=== PATIENT | male | born 1970 | race Caucasian/White ===

== ENCOUNTER 2021-05-20 15:32 | Emergency (ER) | payer OTHER, SELFPAY ==
[2021-05-20 15:57] VITALS: BP 145/92; PULSE 85; RESP 20; TEMP 36.3; O2SAT 99; BMI 29.5
--- NOTE | 2021-05-20 16:34 | ED_ITS ---
Documented by User: Robert Gamble DO 05/20/21 17:39 HPI - Abdominal Pain General: Chief Complaint: Abdominal Pain Stated Complaint: ABD PAINS CRAMPING N/V Time Seen by Provider: 05/20/21 16:32 History of Present Illness: 51-year-old male presents emergency room complaining of abdominal pain with diarrhea that began suddenly while at work. Patient denies any hematemesis coffee-ground emesis no dysuria urgency frequency not noticed anything that exacerbates or relieves it. Does seem somewhat better now than it was earlier. No dysuria urgency or frequency no hematuria. MD elicited complaint: abdominal pain Onset (ago): minute(s) Pain Consistency: intermittent Location: Diffuse Severity: moderate Quality: cramping Radiation: none Migration to: no migration Exacerbating factors: nothing Relieving factors: nothing Associated Symptoms: Reports bloating, change in stool character, chills, GI cramping, diarrhea, nausea and poor appetite; Denies anorexia, belching, change in bowel habits, coffee ground emesis, constipation, dyspepsia, dysuria, excessive flatus, fever(s), heartburn, hematochezia, hematuria, hematemesis, fecal incontinence, loose stools, melena, syncope and vomiting Review of Systems Const: Reports: chills; Denies: fever(s) ENMT: Denies: throat pain, ear or mastoid pain, nasal discharge or nasal congestion Card: Denies: syncope Resp: Denies: dyspnea, productive cough or non-productive cough GI: Reports: nausea, diarrhea, bloating, GI cramping and change in stool character; Denies: vomiting, hematemesis, coffee ground emesis, heartburn, constipation, belching, excessive flatus, fecal incontinence, change in bowel habits, hematochezia or melena : Denies: dysuria or hematuria Skin/Breast: Denies: rash or pruritus PFSH ED PFSH: Medical History (Updated 05/20/21 @ 18:17 by Seema Cueto MD) No significant past medical history Surgical History (Updated 05/20/21 @ 17:11 by Robert Gamble DO) No pertinent past surgical history Social History (Updated 05/20/21 @ 17:11 by Robert Gamble DO) Smoking and tobacco status: never smoked Alcohol intake: never Physical Exam Const: COMMON NORMALS: no acute distress GENERAL APPEARANCE: cooperative and comfortable ORIENTATION/CONSCIOUSNESS: Yes awake, Yes oriented to person, Yes oriented to place and Yes oriented to time HENMT: COMMON NORMALS: normocephalic and atraumatic HEAD & SCALP: normocephalic and atraumatic Neck/C-Spine: COMMON NORMALS: no JVD Resp: COMMON NORMALS: normal respiratory effort, No retractions, No use of accessory muscles and clear to auscultation bilaterally AUSCULTATION: clear to auscultation bilaterally Cardio: COMMON NORMALS: no JVD, regular rate, regular rhythm and No murmurs present (Cardio) RATE: regular rate RHYTHM: regular rhythm GI: AUSCULTATION: Yes Hypoactive bowel sounds present PALPATION: Yes Tenderness to palpation present (GI) Details: LUQ and No Guarding due to palpation present (GI) : COMMON NORMALS: Yes no CVA tenderness BLADDER/KIDNEY EXAM: Yes no CVA tenderness Back/Pelvis: COMMON NORMALS: no CVA tenderness Extremity: COMMON NORMALS: normal to inspection, capillary refill normal, no clubbing, cyanosis or edema, no calf tenderness and no pedal edema Neuro: SENSORIUM/ORIENTATION: Yes oriented to person, Yes oriented to place and Yes oriented to time Skin: COMMON NORMALS: no rashes or lesions noted GENERAL SKIN EXAM: no rashes or lesions noted Course Vital Signs: Vital signs: Vital Signs Temperature 97.4 F L 05/20/21 15:57 Pulse Rate 90 05/20/21 18:02 Respiratory Rate 20 H 05/20/21 15:57 Blood Pressure 133/92 05/20/21 18:02 Pulse Oximetry 95 05/20/21 18:02 MDM - Abdominal Pain Medical Decision Making Labs and imaging pending. Care turned over to Dr. Cueto at change of shift see his notes for final diagnosis and disposition. Lab Data : 05/20/21 16:42 05/20/21 16:42 Labs/Radiology: Radiology Impressions Abdomen/Pelvis CT 05/20/21 17:03 IMPRESSION: 1. Fluid-filled small bowel and colon is consistent with diarrhea and possible enteritis. No obstruction. COMMENTS: Consistent with the [employer]'s Incidental Findings Committee white paper ([employer] 2018): Any incidental renal lesion less than 1 cm or classified as too small to characterize, or any incidental cystic renal lesion characterized as simple-appearing, is likely benign. No follow-up imaging is recommended for these lesions per consensus recommendations based on imaging criteria. Laboratory Results WBC 21.0 10^3/uL (4.0-10.0) H 05/20/21 16:42 RBC 5.49 10^6/uL (4.1-5.3) H 05/20/21 16:42 Hgb 17.6 g/dL (11.7-16.6) H 05/20/21 16:42 Hct 51.9 % (42.0-52.0) 05/20/21 16:42 MCV 94.5 fl (80-94) H 05/20/21 16:42 MCH 32.1 pg (28.0-34.0) 05/20/21 16:42 MCHC 33.9 g/dL (30.0-36.0) 05/20/21 16:42 RDW 12.7 % (12.1-15.1) 05/20/21 16:42 Plt Count 190 10^3/cmm (130-400) 05/20/21 16:42 MPV 10.1 fL (7.4-10.4) 05/20/21 16:42 Neut % (Auto) 86.0 % 05/20/21 16:42 Lymph % (Auto) 5.1 % 05/20/21 16:42 Hughes % (Auto) 6.9 % 05/20/21 16:42 Eos % (Auto) 0.8 % 05/20/21 16:42 Baso % (Auto) 0.4 % 05/20/21 16:42 Neut # (Auto) 18.07 10^3/uL (1.8-7.7) H 05/20/21 16:42 Lymph # (Auto) 1.1 10^3/uL (0.8-4.8) 05/20/21 16:42 Hughes # (Auto) 1.5 10^3/uL (0.2-0.9) H 05/20/21 16:42 Eos # (Auto) 0.2 10^3/uL (0.0-0.8) 05/20/21 16:42 Baso # (Auto) 0.1 10^3/uL (0.0-0.1) 05/20/21 16:42 Nucleated RBC % (auto) 0 % 05/20/21 16:42 Nucleated RBCs # 0.0 /100WBC 05/20/21 16:42 Sodium 140 mmol/L (136-145) 05/20/21 16:42 Potassium 3.7 mmol/L (3.5-5.1) 05/20/21 16:42 Chloride 100 mmol/L (98-107) 05/20/21 16:42 Carbon Dioxide 23 mmol/L (22-29) 05/20/21 16:42 Anion Gap 20.7 (5-19) H 05/20/21 16:42 BUN 19 mg/dL (6-20) 05/20/21 16:42 Creatinine 0.9 mg/dL (0.7-1.2) 05/20/21 16:42 GFR Calculation 88.3 mL/min (90-130) L 05/20/21 16:42 Glucose 105 mg/dL (65-115) 05/20/21 16:42 Calculated Osmolality 293 mOsm/kg (285-295) 05/20/21 16:42 Lactate 1.6 mmol/L (0.5-2.2) 05/20/21 16:42 Calcium 10.5 mg/dL (8.5-10.5) 05/20/21 16:42 Total Bilirubin 0.4 mg/dL (0.15-1.2) 05/20/21 16:42 AST 28 U/L (0-40) 05/20/21 16:42 ALT 27 U/L (0-41) 05/20/21 16:42 Alkaline Phosphatase 116 IU/L (40-130) 05/20/21 16:42 Total Protein 7.6 g/dL (6.6-8.7) 05/20/21 16:42 Albumin 5.0 g/dL (3.5-5.2) 05/20/21 16:42 Globulin 2.6 g/dL (1.3-4.6) 05/20/21 16:42 Lipase 28 U/L (13-60) 05/20/21 16:42 Urine Color Yellow (Yellow) 05/20/21 16:07 Urine Appearance Clear (CLEAR) 05/20/21 16:07 Urine pH 6 (5-7) 05/20/21 16:07 Ur Specific [place] 1.020 (1.005-1.030) 05/20/21 16:07 Urine Protein Trace (Negative) 05/20/21 16:07 Urine Glucose (UA) Norm (Normal) 05/20/21 16:07 Urine Ketones Negative (Negative) 05/20/21 16:07 Urine Blood Neg (Negative) 05/20/21 16:07 Urine Nitrate Negative (Negative) 05/20/21 16:07 Urine Bilirubin 1+ (Negative) H 05/20/21 16:07 Urine Urobilinogen 1 mg/dL (Negative) H 05/20/21 16:07 Ur Leukocyte Esterase Negative (Negative) 05/20/21 16:07 Urine RBC 0-4 /hpf (0-2) H 05/20/21 16:07 Urine WBC None /hpf (0-5) 05/20/21 16:07 Ur Squamous Epith Cells 0-4 /hpf (0-5) H 05/20/21 16:07 Amorphous Sediment Not Reportable 05/20/21 16:07 Urine Bacteria Trace /hpf (NONE) 05/20/21 16:07 Discharge Plan Discharge Patient Disposition: Home Clinical Impression: Abdominal pain, Diarrhea Condition: Stable Prescriptions: New ondansetron 4 mg tablet,disintegrating 4 mg PO Q6H PRN (Reason: nausea and vomiting) Qty: 14 0RF No Action Euthyrox 125 mcg tablet 125 mcg PO QAM 0RF omeprazole 20 mg capsule,delayed release(DR/EC) 20 mg PO QAM 0RF celecoxib 100 mg capsule 100 mg PO BID 0RF fluoxetine 20 mg capsule 40 mg PO QAM 0RF fluticasone propionate 50 mcg/actuation spray,suspension 1 spray INTRANASAL BID PRN (Reason: Allergy Symptoms) 0RF Discharge Orders: Discharge ED (Routine); Ordered 05/20/21 Ordered By: Seema Cueto Discharge Diet: Advance as tolerated Discharge Activity: Resume usual activity Patient Instructions: Abdominal Pain (ED) Coding Level of Care Code ED [place] Inspector for Chg Fwd Exam Comprehensive Documented by User: Seema Cueto MD 05/20/21 18:24 HPI - Abdominal Pain General: Chief Complaint: Abdominal Pain Stated Complaint: ABD PAINS CRAMPING N/V Time Seen by Provider: 05/20/21 16:32 PFS ED PFSH: Medical History (Updated 05/20/21 @ 18:17 by Seema Cueto MD) No significant past medical history Surgical History (Updated 05/20/21 @ 17:11 by Robert Gamble DO) No pertinent past surgical history Social History (Updated 05/20/21 @ 17:11 by Robert Gamble DO) Smoking and tobacco status: never smoked Alcohol intake: never Course Vital Signs: Vital signs: Vital Signs Temperature 97.4 F L 05/20/21 15:57 Pulse Rate 90 05/20/21 18:02 Respiratory Rate 20 H 05/20/21 15:57 Blood Pressure 133/92 05/20/21 18:02 Pulse Oximetry 95 05/20/21 18:02 MDM - Abdominal Pain Medical Decision Making Labs and imaging pending. Care turned over to Dr. Cueto at change of shift see his notes for final diagnosis and disposition. Patient presents here with diarrhea abdominal cramping likely gastroenteritis CT shows an enteritis he does have an elevated white count likely from diarrhea abdominal exam at discharge benign no signs of surgical abdomen he is take Imodium A-D [id number] follow-up with PCP and return if worsening he understands agrees to plan. Lab Data : 05/20/21 16:42 05/20/21 16:42 Labs/Radiology: Radiology Impressions Abdomen/Pelvis CT 05/20/21 17:03 IMPRESSION: 1. Fluid-filled small bowel and colon is consistent with diarrhea and possible enteritis. No obstruction. COMMENTS: Consistent with the [employer]'s Incidental Findings Committee white paper ([employer] 2018): Any incidental renal lesion less than 1 cm or classified as too small to characterize, or any incidental cystic renal lesion characterized as simple-appearing, is likely benign. No follow-up imaging is recommended for these lesions per consensus recommendations based on imaging criteria. Laboratory Results WBC 21.0 10^3/uL (4.0-10.0) H 05/20/21 16:42 RBC 5.49 10^6/uL (4.1-5.3) H 05/20/21 16:42 Hgb 17.6 g/dL (11.7-16.6) H 05/20/21 16:42 Hct 51.9 % (42.0-52.0) 05/20/21 16:42 MCV 94.5 fl (80-94) H 05/20/21 16:42 MCH 32.1 pg (28.0-34.0) 05/20/21 16:42 MCHC 33.9 g/dL (30.0-36.0) 05/20/21 16:42 RDW 12.7 % (12.1-15.1) 05/20/21 16:42 Plt Count 190 10^3/cmm (130-400) 05/20/21 16:42 MPV 10.1 fL (7.4-10.4) 05/20/21 16:42 Neut % (Auto) 86.0 % 05/20/21 16:42 Lymph % (Auto) 5.1 % 05/20/21 16:42 Hughes % (Auto) 6.9 % 05/20/21 16:42 Eos % (Auto) 0.8 % 05/20/21 16:42 Baso % (Auto) 0.4 % 05/20/21 16:42 Neut # (Auto) 18.07 10^3/uL (1.8-7.7) H 05/20/21 16:42 Lymph # (Auto) 1.1 10^3/uL (0.8-4.8) 05/20/21 16:42 Hughes # (Auto) 1.5 10^3/uL (0.2-0.9) H 05/20/21 16:42 Eos # (Auto) 0.2 10^3/uL (0.0-0.8) 05/20/21 16:42 Baso # (Auto) 0.1 10^3/uL (0.0-0.1) 05/20/21 16:42 Nucleated RBC % (auto) 0 % 05/20/21 16: Nucleated RBCs # 0.0 /100WBC 05/20/21 16:42 Sodium 140 mmol/L (136-145) 05/20/21 16:42 Potassium 3.7 mmol/L (3.5-5.1) 05/20/21 16:42 Chloride 100 mmol/L (98-107) 05/20/21 16:42 Carbon Dioxide 23 mmol/L (22-29) 05/20/21 16:42 Anion Gap 20.7 (5-19) H 05/20/21 16:42 BUN 19 mg/dL (6-20) 05/20/21 16:42 Creatinine 0.9 mg/dL (0.7-1.2) 05/20/21 16:42 GFR Calculation 88.3 mL/min (90-130) L 05/20/21 16:42 Glucose 105 mg/dL (65-115) 05/20/21 16:42 Calculated Osmolality 293 mOsm/kg (285-295) 05/20/21 16:42 Lactate 1.6 mmol/L (0.5-2.2) 05/20/21 16:42 Calcium 10.5 mg/dL (8.5-10.5) 05/20/21 16:42 Total Bilirubin 0.4 mg/dL (0.15-1.2) 05/20/21 16:42 AST 28 U/L (0-40) 05/20/21 16:42 ALT 27 U/L (0-41) 05/20/21 16:42 Alkaline Phosphatase 116 IU/L (40-130) 05/20/21 16:42 Total Protein 7.6 g/dL (6.6-8.7) 05/20/21 16:42 Albumin 5.0 g/dL (3.5-5.2) 05/20/21 16:42 Globulin 2.6 g/dL (1.3-4.6) 05/20/21 16:42 Lipase 28 U/L (13-60) 05/20/21 16:42 Urine Color Yellow (Yellow) 05/20/21 16:07 Urine Appearance Clear (CLEAR) 05/20/21 16:07 Urine pH 6 (5-7) 05/20/21 16: Ur Specific [place] 1.020 (1.005-1.030) 05/20/21 16:07 Urine Protein Trace (Negative) 05/20/21 16:07 Urine Glucose (UA) Norm (Normal) 05/20/21 16:07 Urine Ketones Negative (Negative) 05/20/21 16:07 Urine Blood Neg (Negative) 05/20/21 16:07 Urine Nitrate Negative (Negative) 05/20/21 16:07 Urine Bilirubin 1+ (Negative) H 05/20/21 16:07 Urine Urobilinogen 1 mg/dL (Negative) H 05/20/21 16:07 Ur Leukocyte Esterase Negative (Negative) 05/20/21 16:07 Urine RBC 0-4 /hpf (0-2) H 05/20/21 16:07 Urine WBC None /hpf (0-5) 05/20/21 16:07 Ur Squamous Epith Cells 0-4 /hpf (0-5) H 05/20/21 16:07 Amorphous Sediment Not Reportable 05/20/21 16:07 Urine Bacteria Trace /hpf (NONE) 05/20/21 16:07 Discharge Plan Discharge Patient Disposition: Home Clinical Impression: Abdominal pain, Diarrhea Condition: Stable Prescriptions: New ondansetron 4 mg tablet,disintegrating 4 mg PO Q6H PRN (Reason: nausea and vomiting) Qty: 14 0RF No Action Euthyrox 125 mcg tablet 125 mcg PO QAM 0RF omeprazole 20 mg capsule,delayed release(DR/EC) 20 mg PO QAM 0RF celecoxib 100 mg capsule 100 mg PO BID 0RF fluoxetine 20 mg capsule 40 mg PO QAM 0RF fluticasone propionate 50 mcg/actuation spray,suspension 1 spray INTRANASAL BID PRN (Reason: Allergy Symptoms) 0RF Discharge Orders: Discharge ED (Routine); Ordered 05/20/21 Ordered By: Seema Cueto Discharge Diet: Advance as tolerated Discharge Activity: Resume usual activity Patient Instructions: Abdominal Pain (ED) Coding Level of Care Code ED [place] Inspector for Chg Fwd Exam Comprehensive
[2021-05-20] MEDS: sodium chloride 0.9% 1,000 ML 999 ML IV ×2 (16:51→18:00)
[2021-05-20] MEDS: ondansetron 2 mg/ML SDV 2 mL 4 MG IVP (16:53)
[2021-05-20 16:55] VITALS: BP 138/91; PULSE 83; O2SAT 97
[2021-05-20 16:58] LABS: Add Urine Microscopic? YES; Bilirubin Urine 1+ (Negative); Blood Urine Neg (Negative); Glucose Urine UA Norm (Normal); Ketones Urine Negative (Negative); Leukocyte Esterase Urine Negative (Negative); Nitrate Urine Negative (Negative); Protein Urine Trace (Negative); Urine Appearance Clear (CLEAR); Urine Color Yellow (Yellow); Urobilinogen Urine 1 mg/dL (Negative); pH Urine 6 (5-7)
[2021-05-20 17:02] LABS: Basophils # 0.1 10^3/uL (0.0-0.1); Basophils % 0.4 %; Eosinophils # 0.2 10^3/uL (0.0-0.8); Eosinophils % 0.8 %; Hematocrit 51.9 % (42.0-52.0); Hemoglobin 17.6 g/dL (11.7-16.6); Lymphocytes # 1.1 10^3/uL (0.8-4.8); Lymphocytes % 5.1 %; Mean Corpuscular HGB Conc 33.9 g/dL (30.0-36.0); Mean Corpuscular Hemoglobin 32.1 pg (28.0-34.0); Mean Corpuscular Volume 94.5 fl (80-94); Mean Platelet Volume 10.1 fL (7.4-10.4); Monocytes # 1.5 10^3/uL (0.2-0.9); Monocytes % 6.9 %; Neutrophils # 18.07 10^3/uL (1.8-7.7); Nucleated Red Blood Cells % 0 %; Platelet Count 190 10^3/cmm (130-400); Red Blood Count 5.49 10^6/uL (4.1-5.3); Red Cell Distribution Width 12.7 % (12.1-15.1)
--- NOTE | 2021-05-20 17:03 | CTR_ITS ---
PROCEDURE INFORMATION: Exam: CT Abdomen And Pelvis With Contrast Exam date and time: 05/20/2021 5:03 PM Age: 51 years old Clinical indication: Other: Diarrhea; Abdominal pain; Prior surgery; Surgery type: Gb; Additional info: Abd pain TECHNIQUE: Imaging protocol: Computed tomography of the abdomen and pelvis with contrast. Radiation optimization: All CT scans at this facility use at least one of these dose optimization techniques: automated exposure control; mA and/or kV adjustment per patient size (includes targeted exams where dose is matched to clinical indication); or iterative reconstruction. Contrast material: OMNI 300; Contrast volume: 95 ml; Contrast route: INTRAVENOUS (IV); COMPARISON: No relevant prior studies available. RADIATION DOSE METRICS: Total DLP (mGy-cm): 1790.35 FINDINGS: Liver: Normal. No mass. Gallbladder and bile ducts: Cholecystectomy. The bile ducts are normal. Hypodensity in the right kidney is too small to characterize but is most likely a cyst. No follow-up imaging is recommended. The kidneys are otherwise unremarkable. No calculus or hydronephrosis. Pancreas: Normal. No ductal dilation. Spleen: Normal. No splenomegaly. Adrenal glands: Normal. No mass. Kidneys and ureters: See Gallbladder and bile ducts finding. Stomach and bowel: Fluid throughout the colon, consistent with diarrhea. Submucosal fatty deposition in the proximal colon. Food and fluid within a normal appearing stomach. There is scattered fluid throughout the small bowel which measures up to 2.5 cm in diameter. No wall thickening or obstruction. Appendix: The appendix is visualized and is normal. Intraperitoneal space: Unremarkable. No free air. No significant fluid collection. Vasculature: Unremarkable. No abdominal aortic aneurysm. Lymph nodes: Mildly prominent mesenteric lymph nodes are most likely reactive. Urinary bladder: Unremarkable as visualized. Reproductive: Unremarkable as visualized. Bones/joints: Degenerative changes at L5-S1. No fracture. Soft tissues: The small fat containing umbilical hernia. CT/CT abdomen pelvis w con* [id number] IMPRESSION: 1. Fluid-filled small bowel and colon is consistent with diarrhea and possible enteritis. No obstruction. COMMENTS: Consistent with the [employer]'s Incidental Findings Committee white paper ([employer] 2018): Any incidental renal lesion less than 1 cm or classified as too small to characterize, or any incidental cystic renal lesion characterized as simple-appearing, is likely benign. No follow-up imaging is recommended for these lesions per consensus recommendations based on imaging criteria.
--- NOTE | 2021-05-20 17:11 | PC.PHAR ---
pt states he takes care of his own medications-pt states he no longer takes atorvastatin 20mg daily ext med history shows last filled 04/09/21 30d/s
[2021-05-20 17:12] LABS: Bacteria Urine TRACE /hpf; RBC Urine 0-4 /hpf (0-2); Squamous Epithelial Cell Urine 0-4 /hpf (0-5)
[2021-05-20 17:13] LABS: Add Urine Culture? No
[2021-05-20 17:23] LABS: Alanine Aminotransferase 27 U/L (0-41); Alkaline Phosphatase 116 IU/L (40-130); Anion Gap 20.7 (5-19); Aspartate Amino Transferase 28 U/L (0-40); Blood Urea Nitrogen 19 mg/dL (6-20); Calcium 10.5 mg/dL (8.5-10.5); Carbon Dioxide 23 mmol/L (22-29); Chloride 100 mmol/L (98-107); Creatinine Clr Calc Pharmacy 122.2436; Globulin 2.6 g/dL (1.3-4.6); Glomerular Filtration Rate 88.3 mL/min (90-130); Glucose 105 mg/dL (65-115); Lipase 28 U/L (13-60); Osmolality Calculated 293 mOsm/kg (285-295); Potassium 3.7 mmol/L (3.5-5.1); Sodium 140 mmol/L (136-145); Total Bilirubin 0.4 mg/dL (0.15-1.2); Total Protein 7.6 g/dL (6.6-8.7)
[2021-05-20] MEDS: iohexol 300 mg/mL 100 mL Btl IV (17:26)
[2021-05-20 17:51] VITALS: BP 138/91; PULSE 90; O2SAT 92
[2021-05-20 18:02] VITALS: BP 133/92; PULSE 90; O2SAT 95
[2021-05-20 18:15] LABS: Lactate (Lactic Acid level) 1.6 mmol/L (0.5-2.2)
[2021-05-20 18:40] VITALS: BP 133/92; PULSE 88; O2SAT 95
== END 2021-05-20 18:42 | disposition home or self-care (01) ==
PROVIDERS: Physician Assistant; Emergency Provider Emergency Medicine
DX: R10.9 Unspecified abdominal pain (principal); R19.7 Diarrhea, unspecified
CPT/HCPCS: 74177; 80053; 81001; 83605; 83690; 85025; 96361; 96374; 99284; J2405; J7030; Q9967

== ENCOUNTER → 2021-12-08 07:07 | Outpatient (BNVA) | payer OTHER, SELFPAY | PROVIDERS: Referring Provider Nurse Practitioner Family; Visit Provider Student in an Organized Health Care Education/Training Program | DX: M25.511 Pain in right shoulder (principal) | CPT/HCPCS: 73030 ==

== ENCOUNTER 2021-12-21 16:15 | Outpatient (RCR) | payer OTHER, SELFPAY | END 2021-12-23 23:59 | disposition home or self-care (01) | LOC: SPT 16:15 | PROVIDERS: Visit Provider Student in an Organized Health Care Education/Training Program | DX: M25.512 Pain in left shoulder (principal); M25.511 Pain in right shoulder | CPT/HCPCS: 97110; 97161 ==

== ENCOUNTER 2021-12-24 06:00 | Outpatient (RCR) | payer OTHER, SELFPAY | END 2022-01-22 23:59 | disposition home or self-care (01) | LOC: SPT 06:00 | PROVIDERS: Visit Provider Student in an Organized Health Care Education/Training Program | DX: M25.512 Pain in left shoulder (principal); M25.511 Pain in right shoulder | CPT/HCPCS: 97110; 97140 ==

== ENCOUNTER 2022-01-23 06:00 | Outpatient (RCR) | payer OTHER, SELFPAY | END 2022-02-22 23:59 | disposition home or self-care (01) | LOC: SPT 06:00 | PROVIDERS: Visit Provider Student in an Organized Health Care Education/Training Program | DX: M25.512 Pain in left shoulder (principal); M25.511 Pain in right shoulder | CPT/HCPCS: 97110 ==

== ENCOUNTER 2022-09-10 07:30 | Day surgery (SDC) | payer BC, SELFPAY ==
[2022-09-08 11:48] VITALS: BMI 30.8
[2022-09-10 07:49] VITALS: BP 127/88; PULSE 61; RESP 18; TEMP 36.2; O2SAT 98
[2022-09-10] MEDS: sodium chloride 0.9% 1,000 ML 30 ML IV (07:54)
--- NOTE | 2022-09-10 08:29 | W.PM.OPSUD ---
Surgery/Procedure H&P Update DATE OF PROCEDURE: September 10, 2022 DATE H&P PERFORMED: 08/13/22 H&P UPDATE INFORMATION: I have reviewed H&P completed within last 30 days, I have examined patient prior to procedure and No changes to prior documentation PLANNED PROCEDURE: Operation Date: 09/10/22 09:00 Proposed Procedures p [id number] egd w/balloon dialation and colonoscopy Z86.010 ,K21.9,R13.10(Not Applicable) - DO tanner Bhandari Colonoscopy(Not Applicable) - Lino Lockett DO
[2022-09-10 09:12] VITALS: BP 112/75; PULSE 54; RESP 16; TEMP 36.1; O2SAT 91
--- NOTE | 2022-09-10 16:07 | ANE.PACU2 ---
Inpatient post-anesthesia follow up: Airway intact: Yes Vital signs: Temperature 97.0 F Pulse Rate 54 Respiratory Rate 16 Blood Pressure 112/75 Pulse Oximetry 91 Oxygen Delivery Me thod Room Air Oxygen Flow Rate Fraction of Inspir ed Oxygen Hydration adequate: Yes Nausea and vomiting: No Pain level: 1 Mental status: Baseline
== END 2022-09-10 09:44 | disposition home or self-care (01) ==
PROVIDERS: PCP Nurse Practitioner Family; Visit Provider Surgery
PROC: 0DJD8ZZ Inspection of Lower Intestinal Tract, Via Natural or Artificial Opening Endoscopic (ICD-10-PCS; CPT 45378; 2022-09-10 09:00)
DX: K21.9 Gastro-esophageal reflux disease without esophagitis (principal); Z86.010 Personal history of colon polyps; R13.10 Dysphagia, unspecified; K59.00 Constipation, unspecified; D12.3 Benign neoplasm of transverse colon
CPT/HCPCS: 43239; 45385; 88305; J2704; J7030

== ENCOUNTER → 2023-07-08 08:10 | Outpatient (BNVA) | payer BC, SELFPAY | PROVIDERS: PCP Nurse Practitioner Family; Visit Provider Podiatrist Foot & Ankle Surgery | DX: M25.371 Other instability, right ankle; M21.541 Acquired clubfoot, right foot | CPT/HCPCS: 73630 ==

== ENCOUNTER → 2025-01-18 09:15 | Outpatient (BNVA) | payer BC, SELFPAY | DX: E78.5 Hyperlipidemia, unspecified (principal) | CPT/HCPCS: 80053; 80061; 84443; 85025 ==

== ENCOUNTER 2025-02-05 06:35 | Outpatient (CLI) | payer BC, SELFPAY ==
--- NOTE | 2025-02-05 07:00 | US_ITS ---
WS: [id number] RIGHT UPPER QUADRANT ULTRASOUND HISTORY: elevated liver and bili levels COMPARISON: None available. Liver: 16.9 cm in length. Normal size liver. There is mild central intrahepatic biliary duct dilatation. No hepatic mass identified. Portal Vein: Normal hepatopetal flow with monophasic waveform. Gallbladder: Prior cholecystectomy. CBD: 1.0 cm, mildly dilated. Pancreas: Completely obscured by bowel gas. Right kidney: 10.4 cm in length. Normal size and echogenicity. No hydronephrosis or mass. Aorta and IVC: Unremarkable abdominal aorta and IVC. No ascites. US/US liver [id number] IMPRESSION: 1. Prior cholecystectomy. 2. Mild intrahepatic and extrahepatic duct dilatation. Common bile duct measur es 10 mm. Recommend further evaluation of the common bile duct and pancreatic h ead. Consider MRCP and CT abdomen and pelvis with contrast with attention to th e pancreatic 3. Pancreas completely obscured by bowel gas.
== END 2025-02-05 06:36 | disposition home or self-care (01) ==
DX: R74.8 Abnormal levels of other serum enzymes (principal); K83.8 Other specified diseases of biliary tract; K86.89 Other specified diseases of pancreas
CPT/HCPCS: 76705

== ENCOUNTER 2025-02-14 11:38 | Emergency (ER) | payer BC, SELFPAY ==
[2025-02-14 11:40] VITALS: BP 146/87; PULSE 94; RESP 18; TEMP 37; O2SAT 96
[2025-02-14 12:22] LABS: Glucose Urine UA Negative (Normal); Nitrate Urine Positive (Negative); Specific Gravity, Urine 1.024 (1.005-1.030)
[2025-02-14 12:22] LABS: Hematocrit 42.5 % (37-53); Hemoglobin 14.80 g/dL (11.27-16.99); Mean Corpuscular HGB Conc 34.8 g/dL (30-55); Mean Corpuscular Hemoglobin 32.6 pg (27-33); Mean Corpuscular Volume 93.6 fl (82-101); Nucleated Red Blood Cells % 0 %; Platelet Count 235 10^3/cmm (157-399); Red Blood Count 4.54 10^6/uL (3.85-5.65); White Blood Count 11.22 10^3/uL (3.29-11.43)
[2025-02-14 12:27] LABS: Add Urine Microscopic? YES
--- NOTE | 2025-02-14 12:33 | ED_ITS ---
HPI - General Adult 2 General: Chief complaint: General Medical Stated complaint: Dizzy Weakness Swelling in ABD Tired Time Seen by Provider: 02/14/25 11:59 History of Present Illness: 54-year-old male Presents to the emergen cy room with complaint of abdominal discomfort and cramping. He was seen recently had an elevated T. bili and had a ultrasound done which showed some mild intrahepatic and common bile duct dilation. Patient previously has had a cholecystectomy. Patient is a former heavy binge drinker he quit several years ago on recent ultrasound there is no mention of cirrhotic changes. Associated symptoms: Deny chest pain, dyspnea or rash Related Data Home Medications ?Medication ?Instructions ?Recorded ?Confirmed levothyroxine 175 mcg tablet 175 mcg PO QAM 01/18/25 1 Previous Rx's ?Medication ?Instructions ?Recorded albuterol sulfate 90 mcg/actuation 2 puff inhalation Q 6H PRN 01/18/25 aerosol inhaler (Ventolin HFA) shortness of breath or wheezing #6.7 grams fluoxetine 20 mg capsule 20 mg PO QAM #30 caps cholestyramine (with sugar) 4 gram 4 g PO DAILY #348.6 grams 02/07/25 oral powder (Questran) promethazine 25 mg tablet 25 mg PO Q6H PRN nausea and 02/14/25 vomiting #20 tabs Allergies Allergy/AdvReac Type Severity Reaction Status Date / Time No Known Allergies Allergy Verified 01/28/25 15:24 Review of Systems 2 Const: Denies: fever(s) or chills Card: Denies: chest pain Resp: Denies: dyspnea GI: Denies: abdominal pain : Denies: dysuria, urinary frequency or urinary urgency Musc: Denies: neck pain or back pain Skin/Breast: Denies: rash PFSH ED 2 PFSH: Medical History Impingement syndrome of both shoulders No significant past medical history Surgical History Hx of right knee surgery bursa sack removed Hx of cholecystectomy Hx of colonoscopy with polypectomy 2019 and 2022 with multiple polyps removal No pertinent past surgical history Family History Father Heart attack Mother Diabetes Social History Smoking and tobacco/nicotine status: current every day tobacco/nicotine user Alcohol intake: never Physical Exam 2 Const: COMMON NORMALS: no acute distress GENERAL APPEARANCE: cooperative and comfortable ORIENTATION/CONSCIOUSNESS: Yes awake, Yes oriented to person, Yes oriented to place and Yes oriented to time HENMT: COMMON NORMALS: normocephalic, atraumatic and hearing grossly normal bilaterally HEAD & SCALP: normocephalic and atraumatic Resp: COMMON NORMALS: normal respiratory effort, No retractions, No use of accessory muscles and clear to auscultation bilaterally AUSCULTATION: clear to auscultation bilaterally Cardio: COMMON NORMALS: regular rate, regular rhythm and No murmurs present (Cardio) RATE: regular rate RHYTHM: regular rhythm GI: COMMON NORMALS: Soft to palpation and No hepatosplenomegaly present A USCULTATION: Yes normoactive bowel sounds PALPATION: Yes Soft to palpation, No Tenderness to palpation present (GI), No Guarding due to palpation present (GI) and Yes No hepatosplenomegaly present Extremity: COMMON NORMALS: normal to inspection, capillary refill normal, no clubbing, cyanosis or edema, no calf tenderness and no pedal edema Neuro: SENSORIUM/ORIENTATION: Yes oriented to person, Yes oriented to place and Yes oriented to time Skin: COMMON NORMALS: no rashes or lesions noted GENERAL SKIN EXAM: no rashes or lesions noted Course 2 Vital Signs: Vital signs: Vital Signs Temperature 98.6 F 02/14/25 11:40 Pulse Rate 78 02/14/25 16:17 Respiratory Rate 18 02/14/25 11:40 Blood Pressure 129/82 02/14/25 15:59 Pulse Oximetry 99 02/14/25 16:17 Oxygen Delivery Me thod Room Air 02/14/25 13:58 MDM - General Adult Medical Decision Making Patient has dilated intrahepatic ducts slight increase in his T. bili. Transaminase and alk phos are not significantly changed. I called Dr. ROGERS in [place] on-call at [facility]. They agreed is not emergent. I do not think he will benefit for an MRCP he is going to need ERCP regardless there is concern for obstruction at the distal common bile duct at this time still seems to be at least somewhat patient patent. GI clinic took his name and birthdate contact information will expedite an appointment for a ERCP they do not recommend following through the MRCP. Extensive discussion with the patient reviewed the reasons why. Follow-up with GI if symptoms worsen or change return to the emergency room. Medical Records I reviewed the patient's medical records. Lab Data I reviewed the patient's lab results. 02/14/25 12:15 02/14/25 12:15 Radiology Impressions Liver Ultrasound 02/14/25 12:53 IMPRESSION: 1. Dilated intra and extrahepatic biliary ducts. Common bile duct has increased in size by 2 mm since 02/05/2025. 2. Recommend CT evaluation of the pancreas and distal common bile duct to exclude mass or stone. Abdomen/Pelvis CT 02/14/25 12:56 IMPRESSION: 1. Moderate diffuse intrahepatic biliary ductal dilatation with dilatation of the common bile duct. Increased density in the common bile duct at the pancreatic head. Recommend MRCP or ERCP to evaluate for obstructing lesion in this location. 2. A few enlarged lymph nodes at the clinton hepatis nonspecific. 3. Indeterminant complex RIGHT renal lesion measuring 1.4 cm with peripheral enhancement/septations. Recommend interval follow-up with ultrasound. Laboratory Results WBC 11.22 10^3/uL (3.29-11.43) 02/14/25 12:15 RBC 4.54 10^6/uL (3.85-5.65) 02/14/25 12:15 Hgb 14.80 g/dL (11.27-16.99) 02/14/25 12:15 Hct 42.5 % (37-53) 02/14/25 12:15 MCV 93.6 fl (82-101) 02/14/25 12:15 MCH 32.6 pg (27-33) 02/14/25 12:15 MCHC 34.8 g/dL (30-55) 02/14/25 12:15 RDW 12.8 % (12.1-15.1) 02/14/25 12:15 Plt Count 235 10^3/cmm (157-399) 02/14/25 12:15 MPV 9.8 fL (7.4-10.4) 02/14/25 12:15 Neut % (Auto) 83.4 % 02/14/25 12:15 Lymph % (Auto) 5.4 % 02/14/25 12:15 [place] % (Auto) 10.2 % 02/14/25 12:15 Eos % (Auto) 0.3 % 02/14/25 12:15 Baso % (Auto) 0.3 % 02/14/25 12:15 Neut # (Auto) 9.36 10^3/uL (1.8-7.7) H 02/14/25 12:15 Lymph # (Auto) 0.6 10^3/uL (0.8-4.8) L 02/14/25 12:15 [place] # (Auto) 1.1 10^3/uL (0.2-0.9) H 02/14/25 12:15 Eos # (Auto) 0.0 10^3/uL (0.0-0.8) 02/14/25 12:15 Baso # (Auto) 0.0 10^3/uL (0.0-0.1) 02/14/25 12:15 Nucleated RBC % (auto) 0 % 02/14/25 12:15 Nucleated RBCs # 0.0 /100WBC 02/14/25 12:15 PT 13.90 SECONDS (12.1-14.9) 02/14/25 12:15 INR 1.00 (0.8-1.2) 02/14/25 12:15 APTT 26.7 SECONDS (23.9-36.7) 02/14/25 12:15 Sodium 133 mmol/L (136-145) L 02/14/25 12:15 Potassium 3.7 mmol/L (3.5-5.1) 02/14/25 12:15 Chloride 94 mmol/L (98-107) L 02/14/25 12:15 Carbon Dioxide 23 mmol/L (22-29) 02/14/25 12:15 Anion Gap 19.7 (5-19) H 02/14/25 12:15 BUN 13 mg/dL (6-20) 02/14/25 12:15 Creatinine 0.7 mg/dL (0.7-1.2) 02/14/25 12:15 GFR Calculation 116.7 mL/min (90-130) 02/14/25 12:15 Glucose 107 mg/dL (65-115) 02/14/25 12:15 Calculated Osmolality 277 mOsm/kg (285-295) L 02/14/25 12:15 Calcium 9.2 mg/dL (8.5-10.5) 02/14/25 12:15 Total Bilirubin 3.7 mg/dL (0.15-1.2) H 02/14/25 12:15 AST 106 U/L (0-40) H 02/14/25 12:15 ALT 106 U/L (0-41) H 02/14/25 12:15 Alkaline Phosphatase 449 U/L (40-130) H 02/14/25 12:15 Ammonia 29 umol/L (16-60) 02/14/25 12:15 Total Protein 7.2 g/dL (6.6-8.7) 02/14/25 12:15 Albumin 4.3 g/dL (3.5-5.2) 02/14/25 12:15 Globulin 2.9 g/dL (1.3-4.6) 02/14/25 12:15 Lipase 46 U/L (13-60) 02/14/25 12:15 Urine Color Dark yellow (Yellow) A 02/14/25 12:07 Urine Appearance Clear (CLEAR) 02/14/25 12:07 Urine pH 5.5 (5-7) 02/14/25 12:07 Ur Specific [place] 1.024 (1.005-1.030) 02/14/25 12:07 Urine Protein Negative (Negative) 02/14/25 12:07 Urine Glucose (UA) Negative (Normal) 02/14/25 12:07 Urine Ketones Negative (Negative) 02/14/25 12:07 Urine Blood Negative (Negative) 02/14/25 12:07 Urine Nitrate Positive (Negative) A 02/14/25 12:07 Urine Bilirubin 2+ (Negative) H 02/14/25 12:07 Urine Urobilinogen 2.0 mg/dL (Negative) H 02/14/25 12:07 Ur Leukocyte Esterase Trace (Negative) A 02/14/25 12:07 Urine RBC 0-2 /hpf (0-2) 02/14/25 12:07 Urine WBC 0-5 /hpf (0-5) 02/14/25 12:07 Ur Squamous Epith Cells 0-5 /hpf (0-5) 02/14/25 12:07 Amorphous Sediment Not Reportable 02/14/25 12:07 Urine Bacteria None seen /hpf (NONE) 02/14/25 12:07 Hyaline Casts 0-4 /lpf H 02/14/25 12:07 All radiology interpretation(s) finalized by discharge Discharge Plan Discharge Patient Disposition: Home Clinical Impression: Hyperbilirubinemia Condition: Stable Prescriptions: New promethazine 25 mg tablet 25 mg PO Q6H PRN (Reason: nausea and vomiting) Qty: 20 0RF No Action fluoxetine 20 mg capsule 20 mg PO QAM Qty: 30 5RF levothyroxine 175 mcg tablet 175 mcg PO QAM albuterol sulfate [Ventolin HFA] 90 mcg/actuation HFA aerosol inhaler 2 puff inhalation Q6H PRN (Reason: shortness of breath or wheezing) Qty: 6.7 2RF cholestyramine (with sugar) [Questran] 4 gram powder 4 g PO DAILY Qty: 348.6 0RF Rx Instructions: administer w/meal; avoid other meds within 1hr before or 4-6hr after dose Discharge Orders: Discharge ED (Routine); Ordered 02/14/25 Ordered By: Robert Gamble Referrals: Emma Crane NP [Primary Care Provider, Family Practice] Discharge Diet: Usual diet Discharge Activity: Resume usual activity Patient Instructions: Opioid Safety, Pain Management, Patient Portal & [place] Instructions Activity Restrictions/Additional Instructions: Thank you for choosing [facility] for your healthcare needs today. It is very important that you follow up as instructed or that you return to the Emergency Department should you have concerns or if your condition changes or worsens in any way. Emergency department visits are focused on emergent conditions, in some cases you may require further evaluation on an outpatient basis. You were seen in the emergency room with generalized abdominal discomfort. We reevaluated your labs your bilirubin has gone up slightly your other liver enzymes are approximately the same as they were a month ago. We repeated imaging which showed slight increase in the dilation of the ducts inside of the liver and in the common bile duct that drains the liver. We did a CT as well which showed concern for some soft tissue density at the distal part of the common bile duct. Suspect this is what is keeping the liver from draining bile normally. We contacted linux [employer] system administrator in [facility] (Dr. Soto). They have been given your name and your cell phone number and will be reaching out to you to set up an ERCP. The ERCP is the next test that you need. When I discussed with Dr. Soto, he agreed that an MRCP would not really help further evaluate this and that regardless of the result he would end up needing the ERCP. I have also asked our major case detective to reach back out to Dr. Soto's office to ensure that the appointments are made. If you have worsening or changes symptoms return. You may stop the cholestyramine. Recommend avoiding any alcohol or Tylenol products. (Please note that included in your discharge packet is information concerning opioid safety and pain management. This information is given to all patients were discharged from the ER regardless of their discharge diagnosis or the medicines they usually take or are prescribed.) Print Language: Kazakh Coding Level of Care Code ED Bag Making Machine Tender for Brandee Salinas
[2025-02-14 12:36] LABS: INR 1.00 (0.8-1.2); Partial Thromboplastin Time 26.7 SECONDS (23.9-36.7); Prothrombin Time 13.90 SECONDS (12.1-14.9)
[2025-02-14 12:40] LABS: Alanine Aminotransferase 106 U/L (0-41); Albumin Level 4.3 g/dL (3.5-5.2); Alkaline Phosphatase 449 U/L (40-130); Anion Gap 19.7 (5-19); Aspartate Amino Transferase 106 U/L (0-40); Blood Urea Nitrogen 13 mg/dL (6-20); Calcium 9.2 mg/dL (8.5-10.5); Carbon Dioxide 23 mmol/L (22-29); Chloride 94 mmol/L (98-107); Creatinine Clr Calc Pharmacy 153.2627; Globulin 2.9 g/dL (1.3-4.6); Glucose 107 mg/dL (65-115); Lipase 46 U/L (13-60); Osmolality Calculated 277 mOsm/kg (285-295); Potassium 3.7 mmol/L (3.5-5.1); Sodium 133 mmol/L (136-145); Total Protein 7.2 g/dL (6.6-8.7)
--- NOTE | 2025-02-14 12:40 | PC.PHAR ---
Permethrin 5% from 01/18/25 is finished, Zyrtec 10mg daily and Protonix 40mg daily are both finished, also.
[2025-02-14 12:42] LABS: Ammonia 29 umol/L (16-60)
--- NOTE | 2025-02-14 12:53 | US_ITS ---
WS: [id number] RIGHT UPPER QUADRANT ULTRASOUND HISTORY: elevated t bili COMPARISON: 02/05/2025 Liver: 15.6 cm in length. Normal size liver. Increasing intrahepatic duct dilatation since the prior study of 02/05/2025. Portal Vein: Normal hepatopetal flow with monophasic waveform. Gallbladder: Prior cholecystectomy. CBD: 1.3 cm Pancreas: Obscured by bowel gas. Portion of the common bile duct is identified in the pancreatic head but not well seen. Right kidney: 11.4 cm in length. Normal size and echogenicity. No hydronephrosis or mass. Aorta and IVC: Unremarkable abdominal aorta and IVC. No ascites. US/US liver [id number] IMPRESSION: 1. Dilated intra and extrahepatic biliary ducts. Common bile duct has increase d in size by 2 mm since 02/05/2025. 2. Recommend CT evaluation of the pancreas and distal common bile duct to excl ude mass or stone.
--- NOTE | 2025-02-14 12:56 | CT_ITS ---
WS: [id number] CT ABDOMEN PELVIS TECHNIQUE: Contrast-enhanced CT of the abdomen and pelvis with coronal and sagittal reformatted images. CLINICAL INFORMATION: abd pain COMPARISON: 2021 DLP: 848.[address] scans at [facility] use at least one of these dose optimization techniques: automated exposure control; mA and/or kV adjustment per patient size (includes targeted exams where dose is matched to clinical indication); or iterative reconstruction. FINDINGS: Diffuse moderate intrahepatic biliary ductal dilatation. This is new since 2021. Prior cholecystectomy. Portal vein and splenic vein are patent. Dilated common bile duct measures 13 mm. Increased density in the common bile duct at the pancreatic head is indeterminate but obstructing lesion not excluded. Recommend further evaluation with MRCP or ERCP. Normal GE junction. Splenic artery calcification. Adrenal glands are normal. Normal renal parenchymal enhancement. No hydronephrosis. Few small RIGHT renal cyst. Some are too small to characterize. Peripheral enhancing small RIGHT renal lesion suggestion of small enhancing septation. This measures 1.4 cm. Recommend follow-up with ultrasound. Few nonspecific enlarged lymph nodes in the clinton hepatis. Lung bases are well aerated. Normal spleen. Normal caliber abdominal aorta. Celiac and SMA are patent. Shotty periaortic and retroperitoneal lymph nodes. Normal appendix. Small fat-containing umbilical hernia. Mild transverse colon and RIGHT colon fecal retention. Normal sigmoid colon. Small fat-containing umbilical hernia. Mural fat stratification involving the RIGHT colon and sigmoid colon can be seen with inflammatory bowel disease. This is nonspecific. CT/CT abdomen pelvis w con* [id number] IMPRESSION: 1. Moderate diffuse intrahepatic biliary ductal dilatation with dilatation of the common bile duct. Increased density in the common bile duct at the pancreat ic head. Recommend MRCP or ERCP to evaluate for obstructing lesion in this loca tion. 2. A few enlarged lymph nodes at the clinton hepatis nonspecific. 3. Indeterminant complex RIGHT renal lesion measuring 1.4 cm with peripheral e nhancement/septations. Recommend interval follow-up with ultrasound.
[2025-02-14] MEDS: iohexol 350 mg/mL 500 mL Btl (per mL) IV (13:33)
[2025-02-14 13:58] VITALS: BP 126/92; PULSE 72; O2SAT 97
[2025-02-14 15:59] VITALS: BP 129/82; PULSE 76; O2SAT 96
[2025-02-14 16:17] VITALS: PULSE 78; O2SAT 99
--- NOTE | 2025-02-15 09:07 | DCPLANNER ---
faxed chart to [facility] boss. images pushed on 02/14.
== END 2025-02-14 16:30 | disposition home or self-care (01) ==
PROVIDERS: Emergency Provider Family Medicine
DX: E80.6 Other disorders of bilirubin metabolism (principal); Z72.0 Tobacco use
CPT/HCPCS: 36415; 74177; 76705; 80053; 81001; 82140; 83690; 85025; 85610; 85730; 99285